=== PATIENT | male | born 1960 | race African-American/Black ===

== ENCOUNTER 2019-01-03 01:35 | Emergency (ER) | payer SELFPAY, OTHER ==
[~2019-01-03] VITALS: Ht 170.2 cm; Wt 77.1 kg
[2019-01-03 02:00] VITALS: BP 127/79
--- NOTE | 2019-01-03 02:00 | NUR ---
ER Nurse Note: Pt brought in by JANET for medical clearance. Pt stated hx of CHF and wanted to be checked out.Pt denies of shortness of breath, pain. Will continue to [facility].
--- NOTE | 2019-01-03 02:04 | Emergency Room Report ---
History of Present Illness General Chief Complaint: Medical Clearance Source: Patient Present Illness HPI This is a 58-year-old male who said he has a history of congestive heart failure. He was brought in by police for medical clearance. Right now he has no medical problem. He is not on medication. Denies any fever chills but denies any chest pain. Denies any shortness of breath. Denies any other complaint. Allergies: Coded Allergies: No Known Allergies (Verified Allergy, Mild, 02/02/08) Patient History Past Medical History: see triage record, old chart reviewed Past Surgical History: none Pertinent Family History: none Social History: Reports: smoking Immunizations: other Reviewed Nursing Documentation: PMH: Agreed; PSxH: Agreed Nursing Documentation-PMH Hx Hypertension: Yes Hx Diabetes: Yes Review of Systems Eye: Denies: eye pain, blurred vision ENT: Denies: ear pain, nose congestion, throat swelling Respiratory: Denies: cough, shortness of breath Cardiovascular: Denies: chest pain, palpitations Gastrointestinal: Denies: abdominal pain, diarrhea, nausea, vomiting Musculoskeletal: Denies: back pain, joint pain Skin: Denies: rash Neurological: Denies: headache, numbness Endocrine: Denies: increased thirst, increased urine Hematologic/Lymphatic: Denies: easy bruising All Other Systems: negative except mentioned in HPI Physical Exam Vital Signs Date Time Temp Pulse Resp B/P (MAP) Pulse Ox O2 Delivery O2 Flow Rate FiO2 01/03/19 01:38 98.2 83 16 127/79 (95) 96 Room Air Vitals normal Sp02 EP Interpretation: reviewed, normal General Appearance: well appearing, no apparent distress, alert Head: normocephalic, atraumatic Eyes: bilateral eye PERRL, bilateral eye EOMI ENT: hearing grossly normal, normal pharynx Neck: full range of motion, supple, no meningismus Respiratory: chest non-tender, lungs clear, normal breath sounds Cardiovascular #1: regular rate, rhythm, no murmur Gastrointestinal: normal bowel sounds, non tender, no mass, no organomegaly, no bruit, non-distended Musculoskeletal: back normal, gait/station normal, normal range of motion Psychiatric: mood/affect normal Medical Decision Making Diagnostic Impression: Primary Impression: Examination, medicolegal reason ER Course Here for medical clearance. He has no complaint. Lungs are clear. Oxidation normal. No respiratory distress. No pedal edema. No evidence of CHF. Will discharge home. Last Vital Signs Date Time Temp Pulse Resp B/P (MAP) Pulse Ox O2 Delivery O2 Flow Rate FiO2 01/03/19 01:38 98.2 83 16 127/79 (95) 96 Room Air Status: improved Disposition: D/C TO LAW ENFORCEMENT IN [facility] Condition: Stable Additional Instructions: Follow-up with your doctor in 7 days as needed. Return if symptoms worsen. Ang Louis MD Jan 03, 2019 02:04
--- NOTE | 2019-01-03 02:05 | NUR ---
ER Nurse Note: Pt seen, treated, medically cleared for discharge by ERMD. Discharge instuctions and prescriptions given with repeat verbalization by pt. Emphasized to follow up with primay care provider. All orders completed per ERMD orders. Pt a&ox4, VSS, no signs of distress. ID band removed. All questions answered per pt's questions. Pt left with all belongings, left with own transportation.
[2019-01-03 02:07] VITALS: BP 127/79
== END 2019-01-03 02:07 ==
LOC: EMR 01:45
DX: Z02.89 Encounter for other administrative examinations (principal); I10 Essential (primary) hypertension; E11.9 Type 2 diabetes mellitus without complications; F17.200 Nicotine dependence, unspecified, uncomplicated
CPT/HCPCS: 99281